=== PATIENT | female | born 1955 | race Caucasian/White ===

== ENCOUNTER → 2016-06-05 | Outpatient (CLI) | payer MEDICARE, OTHER ==
[~2016-06-05] MED LIST: ABILIFY PO; ACETAMINOPHEN500 M2 PO; ALBUTEROL MININEB NEB; ALBUTEROL17 GM INH; ALBUTEROL20 ml INH; ASTEPRO205.5 MCG/ NS; BENZONATATE PO; BUSPAR; CIPRO PO; CLEOCIN PO; CLIMARA 0.1 MG0.1 MG EXT; CLIMARA 0.1 MG0.1 MG PO; COMBIVENT U/D3 M2 INH; DESYREL100 MG PO; DEXILANT60 MG PO; DICLOFENAC PO; DITROPAN PO; DITROPAN X15 MG/BOTT PO; DOXYCYCLINE PO; ERYTHROMYCIN500 MG PO; ESTRADERM0.1 MG; FENOFIBRATE130 MG PO; FENOFIBRATE150 MG PO; FLONASE 0.05% N16 G1; FLONASE ALLERG9.9 ML; FLOVENT DI50 MCG/DIS INH; GABAPENTIN800 MG PO; HYDROXYZINE HCL25 M1 PO; LAMICTAL PO; LASIX PO; LASIX20 MG PO; LEVOXYL75 MCG PO; LINZESS290 MCG PO; LORTAB 5/500 TA1 TA1 PO; MEDROL4 MG/DOSE- PO; MONTELUKAST SOD10 MG PO; NASONEX17 GM; NEURONTIN800 MG DOB; NEURONTIN800 MG PO; NEXIUM PO; OMEPRAZOLE40 M1 PO; PERCOCET 10/3251 TAB PO; PHENERGAN25 MG PO; PRAVACHOL20 MG PO; PREMARIN PO; PROAIR HFA8.5 GM IH; PROAIR HFA8.5 GM INH; PROZAC PO; PROZAC10 M1 PO; PROZAC40 MG DOB; REGLAN10 MG PO; SEROQUEL PO; SIMVASTATIN10 MG PO; SINGULAIR PO; SPIRIVA18 MCG INH; SYNTHROID0.1 MG PO; TRAZODONE HCL100 MG PO; TRICOR134 MG PO; VICODIN 5/500 T1 TAB PO; VITAMIN D50000 UNIT; VITAMIN D50000 UNIT PO; ZANAFLEX4 M1 PO; ZOCOR10 MG PO; ZOFRAN ODT4 MG PO; ZYRTEC PO; [UNRECOGNIZED DRUG - REMARK]
--- NOTE | ~2016-06-05 | CT2 ---
[facility] A Service of [facility] RADIOLOGY TEXT RESULTS PATIENT: STAN CESPEDES LOCATION: [facility] : 59 UNIT #: [id number] AGE: [address]: Zoran Seaman MD SEX: F ORDER DR: [id number] [facility]. [place], [place] [address] [id number] O MR#: [id number] Acc #: [id number] NAME: STAN CESPEDES : 1955 SEX: F STUDY DATE/TIME: 06/05/2016 14:30 UNIT: [facility] ROOM: STUDY DESCRIPTION: CT Abd and Pelv W Cont Attending Physician: Zoran Seaman M.D. Referring Physician: Zoran Seaman M.D. Ordering Physician: Zoran Seaman M.D. Primary Care Physician: Sander Arnett A.P.R.N. MEDICAL IMAGING REPORT This report is preliminary unless electronic signature is present EXAM CT abdomen and pelvis with contrast 06/05/2016 INDICATIONS 60-year-old female with history of abnormal findings on diagnostic imaging of other parts of digestive tract, constipation unspecified, gastritis unspecified, GERD, nausea, nausea with vomiting, painful swallowing, epigastric pain, right upper quadrant pain, involuntary weight loss. TECHNIQUE CT scan of the abdomen and pelvis was performed following the administration of oral and IV contrast. Coronal and sagittal reformatted images were obtained. This CT exam was performed with one or more of the following radiation dose reduction techniques: automatic exposure control, adjustment of mA and/or kV according to patient size, and iterative reconstruction. COMPARISON STUDIES Compared with 03/14/2015 FINDINGS The lung bases demonstrate granulomatous calcifications and mild scarring/atelectasis in the right lower lobe. CT ABDOMEN: There is patulousness of the distal esophagus with some fluid in the distal esophagus and findings suggesting prior Hallie fundoplication. Fluid in the esophagus may indicate reflux. The liver, gallbladder, spleen, kidneys unremarkable. Left adrenal gland unremarkable. Stable calcifications involving the right adrenal gland. The pancreas is unremarkable. There are no dilated loops of bowel. No ascites or lymphadenopathy. STS. [facility] A Service of [facility] RADIOLOGY TEXT RESULTS PATIENT: STAN CESPEDES LOCATION: [facility] : 59 UNIT #: [id number] AGE: [address]: Zoran Seaman MD SEX: F ORDER DR: CT PELVIS: The colon is unremarkable. Appendix normal. No free fluid. Bone windows demonstrate postop changes of the left femur. The bone windows are unremarkable. IMPRESSION 1. There are changes of what appear to be prior fundoplication. The distal esophagus is patulous and there is some small amount of fluid in the distal esophagus which may indicate reflux. Correlate clinically. 2. Additional findings as described above. Dictated by... Demetrius Byers M.D. THIS IS AN ELECTRONICALLY VERIFIED REPORT Demetrius Byers M.D. at 06/06/2016 5:07 PM Kurt TD: 06/05/2016 18:02 JOB #: [id number] MEDICAL IMAGING REPORT COPY
[2016-06-05 13:19] LABS: BASOPHIL# 0.1 X10e3 (0-0.3); BASOPHIL% 0.7 % (0-2.5); EOSINOPHIL# 0.1 X10e3 (0-0.7); EOSINOPHIL% 1.8 % (0.0-7.0); HEMATOCRIT 36.6 % (35.0-45.0); HEMOGLOBIN 12.3 gm/dL (12.0-16.0); LYMPHOCYTE# 2.5 X10e3 (1.0-3.5); LYMPHOCYTE% 34.6 % (17.0-45.0); MEAN CELL VOLUME 87.2 FL (83-96); MEAN CORPUSCULAR HEMOGLOBIN 29.4 PG (28-34); MEAN CORPUSCULAR HGB CONC 33.7 g/dL (30-36); MEAN PLATELET VOLUME 10.1 FL (6.5-11.5); MONOCYTE# 0.5 X10e3 (0-1.0); MONOCYTE% 7.1 % (3.0-12.0); NEUTROPHIL% 55.8 % (40-75); PLATELET COUNT 190 X10e3 (140-420); WHITE BLOOD COUNT 7.2 X10e3 (4.0-10.5)
[2016-06-05 13:21] LABS: DIFF IND NO
[2016-06-05 13:49] LABS: ALBUMIN SERUM 3.3 g/dL (3.5-5.0); ALKALINE PHOSPHATASE 88 U/L (32-92); ALT (SGPT) 20 U/L (10-40); AMYLASE 20 U/L (0-46); AST (SGOT) 22 U/L (10-42); BILIRUBIN,TOTAL 0.4 mg/dL (0.2-2.0); BLOOD UREA NITROGEN 11 mg/dL (9-23); BUN/CREATININE RATIO 15.71; CALCIUM SERUM 8.9 mg/dL (8.4-10.2); CARBON DIOXIDE 29 mmol/L (22-31); CHLORIDE 99 mmol/L (100-111); CREATININE SERUM 0.7 mg/dL (0.6-1.4); GLOM FILT RATE Estimated ABOVE60 mL/min (>60); GLUCOSE FASTING 116 mg/dL (70-110); LIPASE 19 U/L (22-51); POTASSIUM 3.1 mmol/L (3.5-5.1); PROTEIN TOTAL SERUM 6.7 g/dL (6.0-8.3); SODIUM 136 mmol/L (135-145)
== END | disposition home or self-care (01) ==
LOC: CLAB 12:44
PROVIDERS: Internal Medicine Gastroenterology
DX: K29.70 Gastritis, unspecified, without bleeding (principal); K21.9 Gastro-esophageal reflux disease without esophagitis; K59.00 Constipation, unspecified; R93.3 Abnormal findings on diagnostic imaging of other parts of digestive tract; D64.9 Anemia, unspecified; R07.89 Other chest pain; R63.4 Abnormal weight loss
CPT/HCPCS: 36415; 74177; 80053; 82150; 83690; 85025; 86140; Q9967

== ENCOUNTER → 2016-08-12 | Outpatient (CLI) | payer MEDICARE, OTHER ==
--- NOTE | ~2016-08-12 | US6 ---
[facility] A Service of [facility] RADIOLOGY TEXT RESULTS PATIENT: STAN CESPEDES LOCATION: [facility] : 59 UNIT #: [id number] AGE: [address]: Sukhwinder Danielson MD SEX: F ORDER DR: [id number] [facility] [address] [place], [place] [address] [id number] O MR#: [id number] Acc #: [id number] NAME: STAN CESPEDES : 1955 SEX: F STUDY DATE/TIME: 08/12/2016 7:32 UNIT: US ROOM: STUDY DESCRIPTION: US Abdominal Limited Attending Physician: Sukhwinder Danielson M.D. Referring Physician: Sukhwinder Danielson M.D. Ordering Physician: Sukhwinder Danielson M.D. Primary Care Physician: Sander Arnett A.P.R.N. MEDICAL IMAGING REPORT This report is preliminary unless electronic signature is present EXAM Right upper quadrant abdominal ultrasound. DATE 08/12/2016 HISTORY Abdominal pain for at least a year. Nausea, vomiting, and diarrhea with pain. Hospitalized due to dehydration from nausea and vomiting. Hyperlipidemia. COMPARISON Right upper quadrant abdominal ultrasound 03/06/2015. CT abdomen and pelvis with contrast 06/05/2016. HIDA scan with Kinevac, 02/09/2015. Gastric emptying study 03/27/2015. FINDINGS The pancreas is largely obscured by bowel gas. The liver demonstrates a coarsened echotexture with diminished acoustic through transmission suggesting changes of hepatic steatosis but no focal liver lesions identified. The right kidney measures 9.6 cm in length without focal cortical lesion, shadowing stone, or hydronephrosis. The gallbladder appears free of shadowing stone, sludge, wall thickening, or pericholecystic fluid. The common bile duct caliber is normal, 4 mm. No intrahepatic biliary ductal dilation is seen. No ascites is evident. Liver size is within normal limits measuring about 15.3 cm in longitudinal axis. The intrahepatic IVC, to the extend that can be seen, has an unremarkable turner-scale appearance. IMPRESSION 1. Sonographic features of hepatic steatosis. STS. [facility] A Service of [facility] RADIOLOGY TEXT RESULTS PATIENT: STAN CESPEDES LOCATION: [facility] #: [id number] : 59 UNIT #: [id number] AGE: [address]: Sukhwinder Danielson MD SEX: F ORDER DR: 2. The pancreas is largely obscured by bowel gas. 3. The remainder of the examination is unremarkable. Dictated by... Lottie Schwarz M.D. THIS IS AN ELECTRONICALLY VERIFIED REPORT Lottie Schwarz M.D. at 08/13/2016 9:41 AM XIAO/deyanira TD: 08/12/2016 10:20 JOB #: [id number] MEDICAL IMAGING REPORT Page 1 of 1 COPY
--- NOTE | ~2016-08-12 | NM22 ---
[facility] A Service of [facility] & [facility] RADIOLOGY TEXT RESULTS PATIENT: STAN CESPEDES LOCATION: [facility] : 59 UNIT #: [id number] AGE: [address]: Sukhwinder Danielson MD SEX: F ORDER DR: [id number] [facility] [address] [place], [place] [address] [id number] O MR#: [id number] Acc #: [id number] NAME: STAN CESPEDES : 1955 SEX: F STUDY DATE/TIME: 08/12/2016 8:09 UNIT: [facility] ROOM: STUDY DESCRIPTION: HARLEY Hepatobiliary W GB Pharm Attending Physician: Sukhwinder Danielson M.D. Referring Physician: Sukhwinder Danielson M.D. Ordering Physician: Sukhwinder Danielson M.D. Primary Care Physician: Sander Arnett A.P.R.N. MEDICAL IMAGING REPORT This report is preliminary unless electronic signature is present EXAM Hepatobiliary study with gallbladder stimulation. HISTORY Nausea, vomiting and right upper quadrant bloating and pain for a few months. FINDINGS Patient was given 5.6 mCi of technetium 99m Choletec. There was prompt visualization of the liver and small bowel. The gallbladder was visualized by 60 minutes. At 60 minutes the patient was given 1.7 mcg of Kinevac and gallbladder ejection fraction was 78%. IMPRESSION Normal study with ejection fraction of 78%. Dictated by... Olivier Álvarez M.D. THIS IS AN ELECTRONICALLY VERIFIED REPORT Olivier Álvarez M.D. at 08/12/2016 4:09 PM OUSMNAE/preston TD: 08/12/2016 11:30 JOB #: [id number] MEDICAL IMAGING REPORT Page 1 of 1 COPY
== END | disposition home or self-care (01) ==
LOC: CGUS 07:08
DX: R10.11 Right upper quadrant pain (principal); E78.5 Hyperlipidemia, unspecified
CPT/HCPCS: 76705; 78227; A9537; J2805

== ENCOUNTER → 2016-09-04 | Outpatient (CLI) | payer MEDICARE, OTHER ==
--- NOTE | ~2016-09-04 | EKG ---
PATIENT: STAN CESPEDES UNIT #: [id number] Ventricular Rate: 70 BPM Atrial Rate: 70 BPM P-R Interval: 142 ms QRS Duration: 98 ms Q-T Interval: 450 ms QTC Calculation(Bezet): 486 ms P Mansfield: 45 degrees Calculated R Mansfield: 21 degrees Calculated T [place]field: 25 degrees Diagnosis Line: Normal sinus rhythm Diagnosis Line: Prolonged QT Diagnosis Line: Abnormal ECG Diagnosis Line: When compared with ECG of 03-MAR-2015 12:34, Diagnosis Line: No significant change was found Diagnosis Line: Confirmed by KEVAN FENTON MD ([id number]) on 09/04/2016 Diagnosis Line: 6:54:03 PM INTERPRETING MD: ELICEO MANCUSO
[2016-09-04 11:41] LABS: HEMATOCRIT 42.4 % (35.0-45.0); HEMOGLOBIN 13.7 gm/dL (12.0-16.0); MEAN CELL VOLUME 88.6 FL (83-96); MEAN CORPUSCULAR HEMOGLOBIN 28.7 PG (28-34); MEAN CORPUSCULAR HGB CONC 32.4 g/dL (30-36); MEAN PLATELET VOLUME 10.5 FL (6.5-11.5); RED BLOOD COUNT 4.79 X10e (3.90-5.30); RED CELL DISTRIBUTION WIDTH 14.3 % (11.0-15.5); WHITE BLOOD COUNT 6.2 X10e3 (4.0-10.5)
[2016-09-04 13:07] LABS: CREATININE SERUM 0.5 mg/dL (0.6-1.4); GLOM FILT RATE Estimated 106.7 mL/min (>60); POTASSIUM 4.3 mmol/L (3.5-5.1)
[2016-09-04 13:08] LABS: ALBUMIN SERUM 3.5 g/dL (3.5-5.0); BILIRUBIN,TOTAL 0.3 mg/dL (0.2-2.0); CALCIUM SERUM 9.2 mg/dL (8.4-10.2); PROTEIN TOTAL SERUM 6.5 g/dL (6.0-8.3)
== END | disposition home or self-care (01) ==
LOC: CAMB 10:41 → EDSTATUS 11:00 → CAMB 11:00
PROVIDERS: Surgery
DX: Z01.818 Encounter for other preprocedural examination (principal)
CPT/HCPCS: 36415; 80053; 85027; 93005

== ENCOUNTER → 2016-09-05 | Day surgery (SDC) | payer MEDICARE, OTHER ==
--- NOTE | ~2016-09-05 | OR ---
Unit #: [id number] #: [id number] Patient: STAN CESPEDES [id number] [address] [address] [id number] O MR#: [id number] NAME: STAN CESPEDES ROOM: Date of Procedure: 09/05/2016 Admission Date: 09/05/2016 Surgeon: Sudarshan Andino Jr., M.D. : 1955 Attending Physician: Sudarshan Andino Jr., M.D. Primary Care Physician: Sander Arnett A.P.R.N. OPERATIVE REPORT INDICATIONS FOR PROCEDURE The patient is a 60-year-old obese white female, who has been having intermittent attacks of biliary colic like symptoms. Workup revealed pete gallbladder on CCK-HIDA scan with approximately 78% contraction, but some reproduction of her symptoms. She has also had a history of an ultrasound in the past, which revealed evidence of sludge versus small stones in the gallbladder. She is brought to the operating room at this time for laparoscopic cholecystectomy at her request. She understands the procedure including the risks, including that of common duct injury, biliary leak and bleeding, and intra-abdominal organ injury, and consents. She also understands that having cholecystectomy may not eliminate all of her symptoms or any of her symptoms. PREOPERATIVE DIAGNOSIS Chronic cholecystitis. POSTOPERATIVE DIAGNOSES Chronic cholecystitis. Also, noting multiple omental adhesions to the anterior abdominal wall in the lower abdomen. ANESTHESIA General with endotracheal intubation and 0.5% Marcaine with epinephrine locally. PROCEDURE PERFORMED Laparoscopic cholecystectomy. DESCRIPTION OF PROCEDURE The patient was positioned in supine position. After being anesthetized and intubated, she was prepped and draped in routine fashion for laparoscopic cholecystectomy. A small supraumbilical incision was made approximately a centimeter in length. This was carried down to the fascia. The fascia was lifted with 2 Karol clamps and Veress needle was introduced into the abdomen. The abdomen was then inflated with CO2 gas. A 5-mm port was introduced into the abdomen followed by the camera. There was no evidence of any injury related to the introduction of the port or the Veress needle. Brief intra-abdominal exploration was carried out. The patient was noted to have multiple adhesions in the lower abdomen, but no evidence of any injuries from the Veress needle or the port at the umbilical area. The gallbladder appeared chronically inflamed. Two 5-mm ports were placed laterally and an 11-mm port just to the right of the upper midline. The liver was globular, but appeared normal otherwise. Unit #: [id number] #: [id number] Patient: STAN CESPEDES The gallbladder was lifted. Dissection was carried out in the triangle of Calot. Cystic duct was isolated, hemoclipped x4, and divided approximately a centimeter from its junction where the common duct. Cystic artery was identified, hemoclipped x3, and divided. The gallbladder was then removed from its bed with the hook cautery using a current of 20, and after it was removed from the bed, it was placed in EndoCatch bag and brought out through the larger port site. The port was replaced after the gallbladder was removed and sent to pathology and the subhepatic space checked. There was minimal oozing from the gallbladder bed, which was controlled with the Bovie cautery. After a small amount of blood and bile which was spilled during manipulation of the gallbladder, it was removed with a couple of sponges packed in and directly taken out. The sponge count was correct x3. The fascia in the larger port site was approximated using the neoClose technique and CO2 was expressed from the abdomen and the ports were removed. There was no evidence of any bleeding from the port sites. The port sites were injected with 0.5% Marcaine with epinephrine locally, and after being irrigated and hemostasis again achieved with the Bovie cautery, skin edges were approximated with stainless-steel skin clips and skin stapling device. Sterile dressings were applied externally. Estimated blood loss was less than 50 mL. The patient received less than 2000 mL of crystalloid solution during the procedure. Sponges and instrument counts were correct x3. No drains were used. No complications. The patient was taken to the recovery room with stable vital signs in satisfactory condition. Dictated by... Sudarshan Andino Jr., M.D. JMB/yasir TD: 09/05/2016 23:38 JOB #: [id number] OPERATIVE REPORT Page 1 of 1 X Sudarshan Andino MD X PROCEDURE OPERATIVE NOTE
== END | disposition home or self-care (01) ==
LOC: CSUR 10:00
DX: K81.1 Chronic cholecystitis (principal); K66.0 Peritoneal adhesions (postprocedural) (postinfection); E78.5 Hyperlipidemia, unspecified; J44.9 Chronic obstructive pulmonary disease, unspecified; F17.210 Nicotine dependence, cigarettes, uncomplicated; Z87.01 Personal history of pneumonia (recurrent); Z88.0 Allergy status to penicillin; Z88.2 Allergy status to sulfonamides; Z88.8 Allergy status to other drugs, medicaments and biological substances; Z79.899 Other long term (current) drug therapy; Z90.710 Acquired absence of both cervix and uterus
CPT/HCPCS: 88304; J1170; J1650; J2250; J2270; J2370; J2405; J3010; J3370

== ENCOUNTER → 2016-10-07 | Outpatient (CLI) | payer MEDICARE, OTHER ==
--- NOTE | ~2016-10-07 | NM19 ---
[facility] A Service of [facility] RADIOLOGY TEXT RESULTS PATIENT: STAN CESPEDES LOCATION: [facility] : 59 UNIT #: [id number] AGE: [address]: Zoran Seaman MD SEX: F ORDER DR: [id number] [facility] [address] [place], [place] [address] [id number] O MR#: [id number] Acc #: [id number] NAME: STAN CESPEDES : 1955 SEX: F STUDY DATE/TIME: 10/07/2016 10:41 UNIT: [facility] ROOM: STUDY DESCRIPTION: TX Gastric Emptying Study Attending Physician: Zoran Seaman M.D. Referring Physician: Zorna Seaman M.D. Ordering Physician: Zoran Seaman M.D. Primary Care Physician: Sander Arnett A.P.R.N. MEDICAL IMAGING REPORT This report is preliminary unless electronic signature is present EXAM Gastric emptying scan 10/07/2016 HISTORY Nausea, vomiting, constipation, abdominal bloating and gastroesophageal reflux for 30 years. Epigastric pressure. Symptoms worsening in the last 6 months with abdominal tenderness and belching. FINDINGS The patient ingested 540 microcuries of technetium 99m tagged sulfur colloid in eggs. Images of the upper abdomen were obtained for 4 hours. After 1 hour the stomach was 52% empty, and after 2 hours the stomach was 73% empty. After 4 hours the stomach was 98% empty. Normal ranges greater than 60% empty after 2 hours of imaging and greater than 90% empty after 4 hours of imaging. IMPRESSION Normal gastric emptying after 2 and 4 hours of imaging. Dictated by... Johan Yuen M.D. THIS IS AN ELECTRONICALLY VERIFIED REPORT Johan Yuen M.D. at 10/08/2016 2:17 PM AVINASH/richelle TD: 10/07/2016 20:13 JOB #: [id number] MEDICAL IMAGING REPORT Page 1 of 1 COPY
== END | disposition home or self-care (01) ==
LOC: CNUC 09-26 07:00
DX: K29.70 Gastritis, unspecified, without bleeding (principal); D64.9 Anemia, unspecified; R93.3 Abnormal findings on diagnostic imaging of other parts of digestive tract
CPT/HCPCS: 78264; A9541